=== PATIENT | male | born 1965 | race Two or more races ===

== ENCOUNTER 2017-05-23 14:11 | Emergency (ER) | payer OTHER ==
[~2017-05-23] VITALS: Ht 177.8 cm; Wt 82.6 kg
[2017-05-23] MEDS ORDERED: LEVOTHYROXINE150 MCG ORAL (14:28)
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
[2017-05-23 15:17] VITALS: BP 136/89
--- NOTE | 2017-05-24 10:25 | Diagnostic Imaging Report ---
Indication: Pain 3 views of the left knee were obtained. Findings: There is no patella identified. There are a few small osseous fragments in the expected location of the patella. The bones are osteopenic. There is no fracture or evidence of a joint effusion. IMPRESSION: Absent patella. Please correlate clinically. No acute fracture seen
== END 2017-05-23 15:17 | disposition home or self-care (01) ==
LOC: EMR 15:00
DX: S80.02XA Contusion of left knee, initial encounter (principal); V19.3XXA Pedal cyclist (driver) (passenger) injured in unspecified nontraffic accident, initial encounter; Y93.55 Activity, bike riding; Y92.9 Unspecified place or not applicable; M85.88 Other specified disorders of bone density and structure, other site
CPT/HCPCS: 99283